=== PATIENT | female | born 1960 | race African-American/Black ===

== ENCOUNTER 2023-01-27 09:03 | Emergency (ER) | payer MEDICAID, OTHER ==
[~2023-01-27] VITALS: Ht 170.2 cm; Wt 73.0 kg
[~2023-01-27 09:03] MED LIST: VALS40TA11 MT
[2023-01-27 09:05] VITALS: O2SAT 97
[2023-01-27] MEDS ORDERED: DIAZEPAM 5 MG TABLET PO ONE (09:30)
[2023-01-27] MEDS ORDERED: KETOROLAC 60MG/2ML VIAL IM ONE (09:30)
[2023-01-27] MEDS ORDERED: MORPHINE SULFATE 4 MG/ML CPJ (NOT FOR IM USE) IV ONE ×2 (10:45→21:00)
[2023-01-27 11:32] LABS: HEMATOCRIT 27.4 % (36.0-48.0); HEMOGLOBIN 8.1 g/dL (12.0-16.0); MEAN CORPUSCULAR HEMOGLOBIN 20.9 pg (28.0-32.0); MEAN CORPUSCULAR HGB CONC 29.6 g/dL (31.0-37.0); MEAN CORPUSCULAR VOLUME 70.7 fL (81.0-99.0); PLATELET 833 x1000/uL (130-400); RED BLOOD CELL COUNT 3.88 mill/uL (4.2-5.4); RED CELL DISTRIBUTION WIDTH 18.8 % (11.6-14.6); WHITE BLOOD COUNT 15.4 x1000/uL (4.5-11.0)
[2023-01-27 11:37] LABS: CHLORIDE 101 mEq/L (98-107); INDEX HEMOLYSI 2 (1-3); INDEX ICTERIC 1 (1-4); INDEX LIPEMIC 1 (1-3); POTASSIUM 4.2 mEq/L (3.5-5.1); SODIUM 135 mEq/L (136-145); UREA NITROGEN BLOOD 11 mg/dL (7-21)
[2023-01-27 11:43] LABS: ALANINE AMINOTRANSFERASE 14 IU/L (13-61); ALBUMIN 1.5 g/dL (3.4-5.0); ASPARTATE AMINOTRANSFERASE 21 IU/L (15-37); BILIRUBIN TOTAL 0.4 mg/dL (0.1-1.0); CARBON DIOXIDE 26 mEq/L (21-32); CREATININE 0.4 mg/dL (0.6-1.3); GLUCOSE 131 mg/dL (70-105); PROTEIN TOTAL 8.5 g/dL (6.0-8.3)
[2023-01-27] MEDS ORDERED: GADOTERATE MEGLUMINE 5 MMOL/10 ML VIAL IV ONE (15:36)
[2023-01-28] MEDS ORDERED: MORPHINE SULFATE 4 MG/ML CPJ (NOT FOR IM USE) IV ONE ×3 (05:15→19:30)
[2023-01-28] MEDS ORDERED: FENTANYL CITRATE/PF 50MCG/ML 2ML VIAL IV ONE (10:45)
[2023-01-28 21:00] VITALS: BP 123/72; PULSE 114; RESP 14; TEMP 98.3
== END 2023-01-28 21:50 | disposition short-term general hospital (02) ==
LOC: ER 09:03
DX: S72.91XA Unspecified fracture of right femur, initial encounter for closed fracture (principal); Z20.822 Contact with and (suspected) exposure to COVID-19; I10 Essential (primary) hypertension; X58.XXXA Exposure to other specified factors, initial encounter; Y93.89 Activity, other specified; Y92.89 Other specified places as the place of occurrence of the external cause; Y99.8 Other external cause status
CPT/HCPCS: 80053; 85027; 36415 ×2; 72170; 72197; 93005; 96372; 96374; 99285; 86850; 86900; 86901; 96375; 96376; 87426; A9577; J1885; J2270 ×2; Z7610 ×6; J3010; C9803; A4315